=== PATIENT | female | born 1980 | race American Indian/Alaskan Native ===

== ENCOUNTER → 2025-01-11 | Outpatient (CLI) | payer OTHER, SELFPAY ==
--- NOTE | 2025-01-11 15:27 | XR_ITS ---
Examination: Foot, left, 3 views Technique: AP, oblique, lateral views foot, 3 views Date and time of exam: 5 1616 hours INDICATIONS: Left foot redness swelling and pain infection one month FINDINGS: Moderate osteopenia No fracture No tavia cortical bone destruction No foreign body Soft tissue swelling about the fourth digit IMPRESSION: No tavia cortical bone destruction Soft tissue swelling about the fourth digit Consider MRI foot without contrast follow-up to best assess for early osteomyelitis
== END | disposition home or self-care (01) ==
LOC: CDIM 15:06
PROVIDERS: Referring Provider Family Medicine; Visit Provider Family Medicine
DX: M25.475 Effusion, left foot (principal)
CPT/HCPCS: 73630

== ENCOUNTER 2025-01-14 10:44 | Emergency (ER) | payer OTHER, SELFPAY ==
--- NOTE | 2025-01-14 10:57 | XR_ITS ---
Examination: Foot, left, 3 views Technique: AP, oblique, lateral views foot, 3 views Date and time of exam: January 14, 2025 1119 hrs. Comparison January 11, 2025 Indications: Redness swelling and pain involving the fourth digit today and this week Findings: Old bone density at the base of the fifth metatarsal Early cortical bone destruction involving the ungual tuft tip distal phalanx fourth digit No foreign body Impression: Early osteomyelitis ungual tuft tip distal phalanx fourth digit, consider MRI foot without contrast follow-up
--- NOTE | 2025-01-14 10:57 | PD.EDRME ---
Rapid Medical Screening Exam E Arrival date/time: 01/14/25 10:44 44-year-old female with no known medical history presents to the emergency room with a chief complaint of a wound to the left foot fourth digit. There is pus draining out of it discoloration to the toe and tenderness. Patient states she has been dealing with this problem for the last month and has been on 2 courses of antibiotics. I have greeted and performed a focused initial assessment of this patient. A comprehensive ED assessment and evaluation of the patient, analysis of all test results, and completion of the medical decision making process will be conducted by additional ED providers. Chief Complaint: Ankle/Foot Injury Time Seen by Provider: 01/14/25 10:48 Vital signs reviewed by provider: Yes
[2025-01-14 10:59] VITALS: BP 149/94; PULSE 112; RESP 20; TEMP 37.1; O2SAT 96; BMI 47.5
[2025-01-14 11:33] LABS: Lactate (Lactic Acid) 1.3 mMol/L (0.4-2.0)
[2025-01-14 11:37] LABS: Basophils # (Auto) 0.1 Thou/mm3 (0.0-0.2); Basophils % (Auto) 0 % (0-2.5); Eosinophils # (Auto) 0.1 Thou/mm3 (0.0-0.5); Eosinophils % (Auto) 1 % (0-10); Hematocrit 36.6 % (36.0-46.0); Hemoglobin 12.4 g/dL (12.0-16.0); Immature Granulocytes % (Auto) 0 % (0-0); Immature Granulocytes Auto 0.04 Thou/mm3 (0.00-0.00); Lymphocytes # (Auto) 1.9 Thou/mm3 (1.0-4.8); Lymphocytes % (Auto) 16 % (10-50); Mean Corpuscular HGB Conc 33.9 g/dl (31.0-37.0); Mean Corpuscular Hemoglobin 29.5 pg (25.0-35.0); Mean Corpuscular Volume 87 fL (80-100); Monocytes # (Auto) 0.5 Thou/mm3 (0.0-0.8); Monocytes % (Auto) 4 % (0-12); Neutrophils # (Auto) 9.4 Thou/mm3 (1.8-7.7); Neutrophils % (Auto) 79 % (37-80); Nucleated Red Blood Cell % 0 /100 WBC (0); Platelet Count 319 Thou/mm3 (140-440); RDW Standard Deviation 44.9 fL (36.4-46.3); Red Blood Count 4.21 Miln/mm3 (4.00-5.20); White Blood Count 11.9 Thou/mm3 (3.6-11.0)
[2025-01-14 12:00] LABS: Sed Rate (ESR) 82 mm/hr (0-20)
[2025-01-14 12:02] LABS: Alanine Aminotransferase 14 U/L (10-49); Albumin, Serum 4.3 gm/dL (3.5-5.0); Albumin/Globulin Ratio 1.3 (1.2-2.2); Alkaline Phosphatase 89 U/L (46-116); Anion Gap 11 (7-16); Aspartate Amino Transferase 14 U/L (0-34); BUN/Creatinine Ratio 14 Ratio (12-20); Bilirubin,Total 0.3 mg/dL (0.3-1.2); Blood Urea Nitrogen 13 mg/dL (9-23); C-Reactive Protein 5.4 mg/dL (0.0-0.9); Calcium 9.4 mg/dL (8.3-10.6); Calcium (Corrected) 9.4 mg/dL (8.5-10.1); Carbon Dioxide 27.5 mMol/L (20.0-31.0); Chloride 100 mMol/L (98-107); Creatinine (Component) 0.9 mg/dL (0.6-1.3); Estimated Creatinine Clearance 122.4 mL/min (>60); Globulin 3.3 gm/dL (2.3-3.5); Glucose 122 mg/dL (74-106); Osmolality,Calculated 276 (275-295); Potassium 3.3 mMol/L (3.4-5.1); Procalcitonin 0.04 ng/ml (0.0-0.49); Sodium 138 mMol/L (136-145); Total Protein 7.6 gm/dL (5.7-8.2); eGFR > 60 See Note
[2025-01-14 15:34] VITALS: BP 138/77; PULSE 100; RESP 20; TEMP 36.8; O2SAT 98
--- NOTE | 2025-01-14 16:32 | EDNOTE_ITS ---
ED General RME/HPI General Chief complaint: Ankle/Foot Injury Stated complaint: LEFT FOOT 4TH TOE INFECTION X 1 MONTH; TAKEN ABX 2 Time Seen by Provider: 01/14/25 10:48 Arrival date/time: 01/14/25 10:44 CC: Pain and discharge from the webbing between the third and fourth toe on the left foot HPI ongoing for the past 2 weeks, on her second round of antibiotics, , after being seen from her PCP. Onset started after scratching the top of her foot just at the base of the fourth digit and opening up the skin, after which it became infected . Patient is now complaining of mild tenderness at the site. Denies fever chills shortness of breath or difficulty breathing. The patient has a history of hypertension hyperlipidemia but no diabetes. RME / HPI RME / HPI narrative: 01/14/25 10:44 44-year-old female with no known medical history presents to the emergency room with a chief complaint of a wound to the left foot fourth digit. There is pus draining out of it discoloration to the toe and tenderness. Patient states she has been dealing with this problem for the last month and has been on 2 courses of antibiotics. I have greeted and performed a focused initial assessment of this patient. A comprehensive ED assessment and evaluation of the patient, analysis of all test results, and completion of the medical decision making process will be conducted by additional ED providers. Related Data Home Medications ?Medication ?Instructions ?Recorded ?Confirmed Aspirin/Acetaminophen/Caffeine 1 tab PO Q6HR PRN HEADA MARISSA ##0 02/24/15 (Excedrin Migraine Geltab) Allergies Allergy/AdvReac Type Severity Reaction Status Date / Time NKA* Allergy Uncoded 01/14/25 10:46 Review of Systems Review of Systems Narrative Review of Systems: GEN: No fever, no chills, no weight loss EYES: No discharge, no visual changes, no pain HEENT: No ear pain, no congestion, no sore throat PULM: No shortness of breath, no cough, no congestion CV: No chest pain, no dyspnea on exertion, no palpitations GI: No nausea, no vomiting, no diarrhea, no pain, no constipation : No frequency, no urgency, no dysuria MUSC/SKEL: No joint pain, no back pain SKIN: No rash PSYCH: No hallucinations, no depression HEME/LYMPH: No easy bleeding or bruising tendencies NEURO: No weakness, no headache Past Medical History Social History SMOKING STATUS: Never smoker ED Exam Narrative Physical exam: [General: Morbidly obese not in any acute distress Head normocephalic HEENT: Within acceptable limits Neck is supple nontender Chest equal chest rise nontender to palpation Respiratory: Clear to auscultation no wheezes crackles or rubs CV: Rate rhythm is regular no murmurs rubs or clicks Abdomen is distended secondary to body habitus soft nontender no masses positive bowel sounds all 4 quadrants Back: No CVA tenderness no spinous process tenderness from cervical spine thoracic and lumbar spine Skin: Webbing between the third and fourth digit of the left foot shows some mild discoloration no open fissures, active bleeding. There is discoloration to the dorsum of the foot at the base of the fourth toe is along with some fourth toe edema. Cap refills less than 2 seconds neurosensory intact. No streaking or erythema to the dorsum of the foot mildly warm to touch. Otherwise skin is intact no petechiae rash induration ulceration or crepitus Extremities: Moving all extremity against resistance cap refill less than 2 seconds neurosensory intact Neuro: Awake alert oriented x3 Glascow coma 15 no focal deficits] Course Quality Measures none Orders Category Date Time Status XR foot comp LT min 3V Stat Exams 01/14/25 10:57 Completed Blood Culture (Lab) Stat Lab 01/14/25 11:17 Received CBC Stat Lab 01/14/25 11:17 Completed CMP [Comprehensive Metabolic Panel] Stat Lab 01/14/25 11:17 Completed CRP [C-Reactive Protein] Stat Lab 01/14/25 11:17 Completed ESR [Sed Rate (ESR)] Stat Lab 01/14/25 11:17 Completed Lactate (Lactic Acid) Stat Lab 01/14/25 11:17 Completed Procalcitonin Stat Lab 01/14/25 11:17 Completed Vital Signs Vital signs: Vital Signs Temperature 98.7 F 01/14/25 10:59 Pulse Rate 112 H 01/14/25 10:59 Respiratory Rate 20 01/14/25 10:59 Blood Pressure 149/94 H 01/14/25 10:59 Pulse Oximetry (%) 96 01/14/25 10:59 Oxygen Delivery Method Room Air 01/14/25 10:59 [facility] Patient data External records reviewed:: [facility] previous records Clinical information provided by:: patient Social determinants that could affect healthcare access:: none Patient has the following chronic illnesses:: Morbid obesity hypercholesterolemia hypertension How is presenting disease/condition affected by chronic disease/condition?: u neffected by Evaluation data The following diagnostics were reviewed and interpreted by me:: lab results and radiology exam(s) Lab and/or radiology exams considered but not ordered:: CBC shows leukocytosis of 11.9 no anemia thrombocytopenia ESR is elevated at 82 CMP shows a mild elevated potassium at 3.3 no other electrolyte imbalances glucose at 122 lactic at 1.3 no T. bili or transaminitis elevation. C-reactive protein at 5.4. Interpretation Summary: Patient's x-ray and reactive protein indicated may be an early osteomyelitis. The patient should be allowed to complete her second round of antibiotics in addition to getting a dose of Zosyn today. She has an appointment with her primary care on if there is a worsening of symptoms patient is advised to return to the emergency room for reevaluation. Otherwise patient is advised to get a follow-up referral to podiatry or surgeon. Patient also advised if there is streaking or fever she is to return immediately to the emergency room person patient is currently on Bactrim having taking a complete course of ceftazidime Medications Medications considered but not ordered:: None Medication administrations:: None Consultations Consultation(s) initiated? (list below): No Diagnosis Differential Diagnosis ED Complaint MDM: Osteomyelitis toe cellulitis toe abscess Most likely diagnosis given after review of the tests above:: Toe cellulitis osteomyelitis Admission Indicated Admission indicated?: not indicated Explain why admission is indicated or not indicated:: Stable for outpatient follow-up Admission Request Was there a request for admission?: No Disposition Plan Disposition Plan: Discharge Discharge Attestation Discharge Attestation: The patient and all family members were given an opportunity to ask questions and understood the discharge instructions. Discharge instructions specifically effects, indications for sooner follow up or return to the emergency department, and the expected course of current diagnosis. Patient condition: Stable Medical Decision Making Differential Diagnosis Differential Diagnosis: Osteomyelitis toe cellulitis toe abscess Lab Data 01/14/25 11:17 01/14/25 11:17 Labs: Lab Results 01/14/25 Range/Units 11:17 WBC 11.9 H (3.6-11.0) Thou/mm3 RBC 4.21 (4.00-5.20) Miln/mm3 Hgb 12.4 (12.0-16.0) g/dL Hct 36.6 (36.0-46.0) % MCV 87 (80-100) fL MCH 29.5 (25.0-35.0) pg MCHC 33.9 (31.0-37.0) g/dl RDW Std Deviation 44.9 (36.4-46.3) fL Plt Count 319 (140-440) Thou/mm3 Neut % (Auto) 79 (37-80) % Lymph % (Auto) 16 (10-50) % [place] % (Auto) 4 (0-12) % Eos % (Auto) 1 (0-10) % Baso % (Auto) 0 (0-2.5) % Neut # (Auto) 9.4 H (1.8-7.7) Thou/mm3 Lymph # (Auto) 1.9 (1.0-4.8) Thou/mm3 [place] # (Auto) 0.5 (0.0-0.8) Thou/mm3 Eos # (Auto) 0.1 (0.0-0.5) Thou/mm3 Baso # (Auto) 0.1 (0.0-0.2) Thou/mm3 Immature Gran # (Auto) 0.04 H (0.00-0.00) Thou/mm3 Absolute Nucleated RBC 0.00 (0.00-0.00) Thou/mm3 Immature Gran % 0 (0-0) % Nucleated RBC % 0 (0) /100 WBC ESR 82 H (0-20) mm/hr Sodium 138 (136-145) mMol/L Potassium 3.3 L (3.4-5.1) mMol/L Chloride 100 (98-107) mMol/L Carbon Dioxide 27.5 (20.0-31.0) mMol/L Anion Gap 11 (7-16) BUN 13 (9-23) mg/dL Creatinine 0.9 (0.6-1.3) mg/dL Estim Creat Clear Calc 122.4 (>60) mL/min eGFR > 60 (60 - ) See Note BUN/Creatinine Ratio 14 (12-20) Ratio Glucose 122 H (74-106) mg/dL Calculated Osmolality 276 (275-295) Lactic Acid 1.3 (0.4-2.0) mMol/L Calcium 9.4 (8.3-10.6) mg/dL Corrected Calcium 9.4 (8.5-10.1) mg/dL Total Bilirubin 0.3 (0.3-1.2) mg/dL AST 14 (0-34) U/L ALT 14 (10-49) U/L Alkaline Phosphatase 89 (46-116) U/L C-Reactive Prot, Quant 5.4 H (0.0-0.9) mg/dL Total Protein 7.6 (5.7-8.2) gm/dL Albumin 4.3 (3.5-5.0) gm/dL Globulin 3.3 (2.3-3.5) gm/dL Albumin/Globulin Ratio 1.3 (1.2-2.2) Procalcitonin 0.04 (0.0-0.49) ng/ml Discharge Plan Plan Patient Disposition: HOME (Self Care) Patient condition on transfer: Stable Prescriptions/Referrals Prescriptions/Med Rec: No Action Aspirin/Acetaminophen/Caffeine (Excedrin Migraine Geltab) 1 EACH tablet 1 tab PO Q6HR PRN (Reason: HEADACHE) Qty: 0 Referrals: Frank Herrera MD [Primary Care Provider] - In 1 week Problem List Clinical Impression: Cellulitis of fourth toe of left foot Patient/Caregiver Discharge Instructions Other Activity Instructions:: Take the medications as prescribed, take a picture of the toe every day at the same time if there is a worsening of symptoms including redness or streaking in the top of the foot or fever return immediately to the emergency room. Otherwise talk to your primary care provider consider referral to podiatry, and or surgery. Education Materials: ED Cellulitis Print Language: Korean Stand Alone Forms: Alicia Award Info., Work/School Release, Patient Portal Info Letter BONG/REMI Supervising Physician PA/REMI Supervising Physician: Perry Romero ENP
[2025-01-14 16:39] VITALS: BP 140/103; PULSE 98; RESP 20; TEMP 36.9; O2SAT 98
[2025-01-14] MEDS: PIPER/TAZO INJ 3.375 GM in SODIUM CHLORIDE 0.9% (Popper) 50 ML IV (17:10)
== END 2025-01-14 17:49 | disposition home or self-care (01) ==
PROVIDERS: Nurse Practitioner Family; Emergency Provider Emergency Medicine; PCP Internal Medicine
DX: L03.032 Cellulitis of left toe (principal)
CPT/HCPCS: 36415; 73630; 80053; 83605; 84145; 85025; 85652; 86140; 87040; 96365; 99284; J2543; J7050

== ENCOUNTER → 2025-02-20 | Outpatient (CLI) | payer OTHER, SELFPAY ==
--- NOTE | 2025-02-20 14:30 | XR_ITS ---
Examination: CT left foot, without contrast. 2-D sagittal reconstructions. 2-D coronal reconstructions. 3-D reconstructions. Date and time of exam:February 20, 2025 1434 hours INDICATIONS: Redness swelling and pain involving the fourth digit left foot December 2024 CTDI: vol (mGy):5.57 DLP: (mGycm):159 Technique: Multiple 1.25 mm axial sections of the left foot without intravenous contrast have been obtained. 2-D sagittal and coronal reconstructions have been obtained. 3-D reconstructions have been obtained. Low dose protocols were performed. One or more of the following dose reduction techniques were used; automated exposure control, adjustment of the mA and/or KV according to patient size, use of iterative reconstruction technique. Findings: Edema in the soft tissue lateral foot Moderate osteopenia No pathologic fracture No tavia cortical bone destruction involving the digits on this study No soft tissue abscess IMPRESSION: Cellulitis pattern Negative for osteomyelitis
== END | disposition home or self-care (01) ==
DX: L97.529 Non-pressure chronic ulcer of other part of left foot with unspecified severity (principal)
CPT/HCPCS: 73700